=== PATIENT | female | born 1970 | race Caucasian/White ===

== ENCOUNTER 2019-04-23 15:54 | Outpatient (CLI) | payer BC, SELFPAY ==
--- NOTE | ~2019-04-23 | MM_ITS ---
EXAMINATION: MM screening deborah BI w mathew HISTORY: Screening mammogram TECHNIQUE: . Bilateral rotated lateral cc views. Craniocaudal and mediolateral oblique 3-D tomosynthe sis images were obtained and synthetic 2-D images were generated. CAD analysis was submitted and inte rpreted. COMPARISON: 03/26/2018, 11/22/2017, 11/14/2016 bilateral digital screening mammogram examinations BREAST PARENCHYMAL COMPOSITION: The breasts are heterogeneously dense, which may obscure small masses . FINDINGS: Numerous scattered bilateral benign calcifications. There is no evidence of suspicious mass , calcification, or architectural distortion to suggest malignancy in either breast. There has been n o suspicious interval change. IMPRESSION: 1. No mammographic evidence of malignancy. 2. Recommend routine screening mammography in one year. BI-RADS Category 2: Benign finding(s). Reviewed, dictated and finalized at location A. CISE SPECIALIST
== END 2019-04-23 15:55 | disposition home or self-care (01) ==
LOC: ANHIMG 15:59
PROVIDERS: PCP Family Medicine; Visit Provider Family Medicine
DX: Z12.31 Encounter for screening mammogram for malignant neoplasm of breast (principal)
CPT/HCPCS: 77063; 77067

== ENCOUNTER 2020-01-18 18:31 | Emergency (ER) | payer BC, SELFPAY ==
[2020-01-18] VITALS (20 sets, daily range): BP systolic 116–143; BP diastolic 77–86; PULSE 50–65; RESP 12–23; TEMP 36.7; O2SAT 96–100
--- NOTE | ~2020-01-18 | CT_ITS ---
EXAMINATION: CTA chest PE protocol DATE: 01/18/2020 22:25 INDICATION: Shortness of breath. TECHNIQUE: Computed tomography angiography (CTA) of the chest was performed with 100 mL Omnipaque-350 intravenous contrast timed to evaluate the pulmonary arteries. Coronal maximum intensity projection 3D-reconstructions were created by the technologist. Automated exposure control and iterative reconst ruction technique were employed. The dose-length product was 421.67 mGy-cm. COMPARISON: Chest single view 01/18/2020 FINDINGS: There is mild scarring at the lung apices. There is a 9 mm groundglass opacity in right upp er lobe. There is mild atelectasis bilaterally. The lung volumes are small. No pleural effusion. Calc ified right hilar lymph nodes are consistent with old granulomatous disease. The heart size is normal . No pericardial effusion. There is no pulmonary embolus. There is mild thoracic spondylosis. IMPRESSION: 1. No pulmonary embolus. 2. 9 mm groundglass opacity in right upper lobe, likely inflammation or infection. Consider noncontra st low-dose chest CT in 12 months. Reviewed, dictated and finalized at location B. ING AND BUFFING MACHINE OPERATOR IMPRESSION: 1. No pulmonary embolus. 2. 9 mm groundglass opacity in right upper lobe, likely inflammation or infecti on. Consider noncontrast low-dose chest CT in 12 months.
--- NOTE | ~2020-01-18 | XR_ITS ---
EXAMINATION: XR chest 1V portable INDICATION: Shortness of breath, COVID 19 TECHNIQUE: Portable AP chest at 1932 hours COMPARISON: 11/23/2015 FINDINGS: The lung volumes are low. There are patchy opacities throughout all lung zones. No pleural effusion or pneumothorax is identified. The cardiomediastinal silhouette is normal. IMPRESSION: 1. Diffuse lung disease, consistent with pneumonia. Reviewed, dictated and finalized at location A. EGNATING HELPER
--- NOTE | 2020-01-18 18:33 | ECG_ITS ---
Measurements Intervals [place] Rate: 60 P: 44 DE: 160 QRS: -3 QRSD: 105 T: 14 QT: 448 QTc: 448 Interpretive Statements SINUS RHYTHM BORDERLINE T WAVE ABNORMALITY- INFERIOR LEADS BASELINE ARTIFACT- V2-V3, V5 BORDERLINE ECG Electronically Signed On 01-19-2020 13:36:55 CIGAR MAKING MACHINE OPERATOR by Kamari Kauffman D.O.
--- NOTE | 2020-01-18 18:37 | ECG_ITS ---
Measurements Intervals [place] Rate: 56 P: -3 ME: 162 QRS: 7 QRSD: 99 T: 14 QT: 453 QTc: 440 Interpretive Statements SINUS BRADYCARDIA BORDERLINE T WAVE ABNORMALITY- INFERIOR LEADS BASELINE ARTIFACT- I, III, V2-V5 BORDERLINE ECG Electronically Signed On 01-19-2020 8:39:41 PIT CLERK by Kamari Kauffman D.O.
--- NOTE | 2020-01-18 19:05 | ED.WEAKNESS ---
HPI - Weakness General Chief complaint: Weakness Stated complaint: weakness/covid+ Time Seen by Provider: 01/18/20 19:05 Source: patient and EMS Mode of arrival: EMS Limitations: no limitations History of Present Illness HPI Narrative: Patient is a 49-year-old female with a history of hyperthyroidism, arthritis, who presents for evaluation of weakness in the setting of a Covid diagnosis. Patient became febrile with Covid symptoms on January 09, positive test 2 days later. Patient denies any shortness of breath, she reports myalgias, feeling diffusely weak, intermittently dizzy, nauseous. Patient also reporting mild, aching chest pressure over the mid sternum and bilateral lower lobes. She reports intermittent fever and chills. She lives alone, states that she was concerned given the degree of weakness. She denies rash, states she has a history of superficial thrombophlebitis and has some increased myalgias, tenderness over a superficial vein in her left calf. She otherwise denies calf pain. Patient recently finished a course of azithromycin and hydroxychloroquine. Related Data Allergies Allergy/AdvReac Type Severity Reaction Status Date / Time iodine Allergy Unknown Unknown Verified 01/18/20 18:38 Shrimp Allergy Unknown Unknown Uncoded 01/18/20 18:38 Review of Systems Review of Systems: Narrative: CONSTITUTIONAL: Reports fever and chills EYES: Denies visual changes, redness, or discharge. ENT: Denies rhinorrhea, congestion, sore throat, or otalgia. CARDIOVASCULAR: Reporting central chest pain RESPIRATORY: Reporting dry cough, denies shortness of breath GASTROINTESTINAL: Denies abdominal pain, reports nausea GENITOURINARY: Denies dysuria or hematuria. SKIN: Reports superficial thrombophlebitis of left lower extremity MUSCULOSKELETAL: Denies back pain, reports arthralgias and myalgias NEUROLOGIC: Denies headache, reports diffuse weakness PSYCHIATRIC: Denies anxiety or depression. FOR[facility]LY [facility] Past Medical History Medical History (Updated 01/18/20 @ 23:20 by Nannette Hernandez MD) Arthritis Hypothyroidism, unspecified Surgical History Surgical History (Updated 01/18/20 @ 19:32 by Nannette Hernandez MD) History of tonsillectomy Family History Family History (Updated 10/08/15 @ 23:19 by DOCTOR UNKNOWN) Sibling Family history of malignant melanoma Mother Family history of malignant neoplasm of breast in first degree relative Social History Social History Smoking status: Never smoker Alcohol intake: never Substance use: never Substance use type: does not use Exam Narrative: Exam Narrative: GENERAL: Awake, alert, conversant HEAD: Normocephalic, atraumatic. EYES: PERRLA and EOMI. ENT: Nares clear, no rhinorrhea or epistaxis. Mucous membranes moist. NECK: Supple. CHEST: No respiratory distress, breathing even and non labored HEART: Regular rate, sinus rhythm ABDOMEN:Non distended, non tender EXTREMITIES: Normal range of motion. No edema. SKIN: Warm, dry, no rash. No calf tenderness. Area of superficial thrombophlebitis of the left lower extremity, just inferior to the left knee. Mildly tender, no severe erythema. NEURO:No focal deficits. Alert and oriented x3 Course Vital Signs Vital signs: Vital Signs Temperature 36.7 C 01/18/20 18:26 Pulse Rate 61 01/18/20 18:26 Respiratory Rate 18 01/18/20 18:26 Blood Pressure 143/83 H 01/18/20 18:26 Pulse Oximetry 100 01/18/20 18:26 Temperature 36.7 C 01/18/20 18:26 Pulse Rate 56 L 01/18/20 23:03 Respiratory Rate 14 01/18/20 23:03 Blood Pressure 116/80 01/18/20 21:31 Pulse Oximetry 100 01/18/20 23:03 MDM - Weakness MDM Narrative Medical decision making narrative: Patient presented for evaluation weakness in the setting of Covid diagnosis. At the time of assessment, ABCs are intact and vital signs are stable. No hypoxemia or respiratory distress. Neurological exam is
[2020-01-18] MEDS: oxyCODONE HCL (*CRX) 5 MG TAB IR PO (19:35)
[2020-01-18] MEDS: ONDANSETRON INJ 4 MG/2 ML VIAL IV PUSH (19:36)
[2020-01-18 19:51] LABS: Basophils Percent Auto 0.3 % (0.2-1.2); Eosinophils Absolute Auto 0.2 K/mm3 (0-0.3); Eosinophils Percent Auto 2.5 % (0-4.4); Hemoglobin 12.6 g/dL (12.0-15.0); Immature Granulocyte Absolute 0.02 K/mm3 (0.00-0.031); Immature Granulocyte Percent A 0.3 % (0-0.5); Lymphocytes Absolute Auto 1.59 K/mm3 (0.9-3.2); Lymphocytes Percent Auto 26.3 % (18.3-44.2); Mean Corpuscular Hemoglobin 30.7 pg (26-34); Mean Corpuscular Volume 87.6 fl (80-100); Mean Platelet Volume 10.9 fl (7.4-10.4); Monocytes Absolute Auto 0.6 K/mm3 (0.1-0.6); Monocytes Percent Auto 9.3 % (2.6-8.5); Neutrophils Absolute Auto 3.7 K/mm3 (1.3-6.7); Neutrophils Percent Auto 61.3 % (45.5-73.1); Platelet Count Result 158 k/mm3 (150-375); Red Blood Count 4.11 M/mm3 (4.2-5.4); Red Cell Distribution Width 12.6 % (11.5-14.5); White Blood Count 6.1 K/mm3 (4.5-10.0)
[2020-01-18 20:02] LABS: Creatine Kinase 48 U/L (30-135)
[2020-01-18 20:03] LABS: Add Urine Microscopic? NO; Appearance Urine Clear (Clear); Bilirubin Urine Negative (Negative); Blood Urine Negative (Negative); Color Urine Straw (Yellow); Glucose Urine UA Negative (Negative); Ketones Urine Negative (Negative); Leukocyte Esterase Ur Negative LEU/UL (Negative); Nitrate Urine Negative (Negative); Protein Urine Negative (Negative); Urobilinogen Urine Negative mg/dL (<2.0)
[2020-01-18 20:04] LABS: Alanine Aminotransferase 28 U/L (4-35); Albumin Level 3.9 g/dL (3.5-5.1); Alkaline Phosphatase 63 U/L (38-126); Anion Gap 8 mmol/L (8-16); Aspartate Amino Transferase 33 U/L (14-36); Bilirubin,Total 0.4 mg/dL (0.2-1.3); Blood Urea Nitrogen 14 mg/dL (7-17); Calcium 8.6 mg/dL (8.4-10.2); Carbon Dioxide 27 mmol/L (22-30); Chloride 105 mmol/L (98-107); Estimated CRCL calculation 99 ml/min; Estimated Glomerular Filt Rate > 60; Glucose 105 mg/dL (65-105); Potassium 3.8 mmol/L (3.4-5.0); Sodium 140 mmol/L (137-145)
[2020-01-18 20:15] LABS: Troponin I < 0.012 ng/mL (0.000-0.034)
[2020-01-18 20:33] LABS: INR 0.9; Prothrombin Time 12.6 Seconds (11.1-14.7)
[2020-01-18 20:36] LABS: D Dimer 0.53 ug/mL (<0.48)
[2020-01-19 00:04] VITALS: BP 137/77; PULSE 61; RESP 18; O2SAT 100
== END 2020-01-19 00:06 | disposition home or self-care (01) ==
PROVIDERS: Emergency Provider Emergency Medicine; PCP Family Medicine
DX: U07.1 COVID-19 (principal); R53.1 Weakness; M19.90 Unspecified osteoarthritis, unspecified site; E05.90 Thyrotoxicosis, unspecified without thyrotoxic crisis or storm; R00.1 Bradycardia, unspecified; R94.31 Abnormal electrocardiogram [ECG] [EKG]
CPT/HCPCS: 36415; 71045; 71275; 80053; 81003; 82550; 84484; 85025; 85380; 85610; 85730; 93005; 96374; 99284; A9270; J2405; Q9967

== ENCOUNTER → 2020-05-14 14:17 | Outpatient (CLI) | payer BC, SELFPAY ==
--- NOTE | ~2020-05-14 | MMUS_ITS ---
EXAMINATION: MM diagnostic deborah BI w mathew, US breast LT limited HISTORY: Palpable left breast abnormality TECHNIQUE: Additional 3-D tomosynthesis images of the breasts were performed and synthetic 2-D images were generated. CAD analysis was submitted and interpreted. High resolution Limited left breast ultr asound was performed. COMPARISON: Comparison to multiple prior studies sequentially, with oldest reviewed study dated 09/24. BREAST PARENCHYMAL COMPOSITION: The breasts are heterogenously dense, which may obscure small masses. FINDINGS: MAMMOGRAPHIC FINDINGS: There are no suspicious masses, calcifications or architectural distortion to suggest malignancy. The re are benign bilateral breast calcifications. ULTRASOUND: Limited left breast ultrasound: Normal heterogeneous echotexture in the area of palpable concern. IMPRESSION: 1. No evidence for malignancy in either breast. 2. Routine yearly screening mammogram and regular clinical breast examination are recommended. BI-RADS Category 2: Benign finding(s). Reviewed, dictated and finalized at location A. RVISOR PIPE JOINTS IMPRESSION: 1. No evidence for malignancy in either breast. 2. Routine yearly screening mammogram and regular clinical breast examination a re recommended. BI-RADS Category 2: Benign finding(s).
== END ==
PROVIDERS: PCP Family Medicine; Visit Provider Obstetrics & Gynecology
DX: N63.20 Unspecified lump in the left breast, unspecified quadrant (principal)
CPT/HCPCS: 76642; 77062; 77066; G0279

== ENCOUNTER 2021-03-30 13:48 | Outpatient (CLI) | payer OTHER, SELFPAY ==
--- NOTE | ~2021-03-30 | US_ITS ---
EXAMINATION: US abdomen limited DATE: 03/30/2021 14:22 INDICATION: Left upper quadrant abdominal pain TECHNIQUE: Multiple grayscale and Doppler ultrasound images of the abdomen were obtained. COMPARISON: None FINDINGS: Normal spleen measuring 10.3 cm in maximal length. Left kidney measures 10.0 x 5.8 x 5.4 cm with norm al echogenicity and contour. No hydronephrosis. IMPRESSION: 1. Normal left upper quadrant ultrasound. Reviewed, dictated and finalized at location A. MILITARY
== END 2021-03-30 13:49 | disposition home or self-care (01) ==
PROVIDERS: PCP Family Medicine; Visit Provider Nurse Practitioner Family
DX: R10.12 Left upper quadrant pain (principal)
CPT/HCPCS: 76705

== ENCOUNTER → 2022-05-31 15:25 | Outpatient (CLI) | payer OTHER, SELFPAY ==
--- NOTE | ~2022-05-31 | MM_ITS ---
EXAMINATION: MM screening deborah BI w mathew HISTORY: Screening TECHNIQUE: Craniocaudal and mediolateral oblique 3-D tomosynthesis images were obtained and synthetic 2-D images were generated. CAD analysis was submitted and interpreted. COMPARISON: No prior mammogram is available for comparison at this institution. BREAST PARENCHYMAL COMPOSITION: The breasts are heterogeneously dense, which may obscure small masses . FINDINGS: There are bilateral subareolar masses which are obscured by fibroglandular tissue. There ar e scattered benign-appearing breast calcifications. IMPRESSION: 1. Bilateral subareolar masses. 2. Additional mammographic views and possible breast ultrasound are recommended. BI-RADS Category 0: Incomplete: Needs additional imaging evaluation. Reviewed, dictated and finalized at location A. IMPRESSION: 1. Bilateral subareolar masses. 2. Additional mammographic views and possible breast ultrasound are recommended . BI-RADS Category 0: Incomplete: Needs additional imaging evaluation.
== END ==
PROVIDERS: PCP Family Medicine; Visit Provider Obstetrics & Gynecology
DX: Z12.31 Encounter for screening mammogram for malignant neoplasm of breast (principal); R92.8 Other abnormal and inconclusive findings on diagnostic imaging of breast
CPT/HCPCS: 77063; 77067

== ENCOUNTER → 2022-06-22 08:40 | Outpatient (CLI) | payer OTHER, SELFPAY ==
--- NOTE | ~2022-06-22 | MMUS_ITS ---
EXAMINATION: MM diagnostic deborah BI w mathew, US breast BI complete HISTORY: Bilateral subareolar masses reported on 05/31/2022 screening mammogram TECHNIQUE: Additional 3-D tomosynthesis images of both breasts were performed and synthetic 2-D image s were generated. CAD analysis was submitted and interpreted. High resolution bilateral complete chrystal st ultrasound examination including all 4 quadrants and subareolar areas was performed. COMPARISON: 05/31/2022 bilateral screening mammogram BREAST PARENCHYMAL COMPOSITION: The breasts are heterogeneously dense, which may obscure small masses . FINDINGS: MAMMOGRAPHIC FINDINGS: There are multiple scattered benign-appearing microcalcifications in both breasts. Heterogeneously dense stroma may obscure masses. In particular, there is some asymmetry in the isaac lateral right breast on craniocaudal view. ULTRASOUND: Right breast: 12:00 subareolar: 2.5 x 1.4 x 2.9 cm simple cyst. This accounts for the mammographic asymmetry noted in the subareolar right breast. 12:00 4 cm from nipple: Parallel circumscribed hypoechoic 7 x 12 x 9 mm lesion without internal vascu larity or suspicious shadowing 12:00 4 cm from nipple: 3.5 x 3.2 mm sonolucency with through transmission posterior enhancement, lik thea a small cyst 12:00 2 cm from nipple: Parallel circumscribed 3.4 x 7 x 5.6 mm hypoechoic lesion without internal va scularity or posterior shadowing, benign in appearance 9:00 6 cm from nipple: 5 x 5.5 mm sonolucent lesion without internal vascularity, with posterior enha ncement, likely a small cyst 9:00 3 cm from nipple: Parallel circumscribed 4 x 8 x 7.5 mm sonolucency with through transmission, c onsistent with simple cyst 11:00 4 cm from nipple: 6 x 9.5 x 10.5 mm parallel circumscribed sonolucency with through transmissio n and posterior enhancement, consistent with simple cyst is Subareolar area: 7 x 10 mm cyst Left breast: 12:00 subareolar area: 6 x 8 x 7 mm cyst 12:00 2 cm from nipple: Parallel circumscribed hypoechoic 3.6 x 9 x 8 mm lesion with through transmis pillo, no internal vascularity, benign in appearance Subareolar area: 10 x 12.8 mm sonolucency with through transmission posterior enhancement consistent with cyst IMPRESSION: 1. Bilateral benign findings; no mammographic evidence of malignancy 2. Routine annual mammographic screening is recommended BI-RADS Category 2: Benign finding(s). Reviewed, dictated and finalized at location A. IMPRESSION: 1. Bilateral benign findings; no mammographic evidence of malignancy 2. Routine annual mammographic screening is recommended BI-RADS Category 2: Benign finding(s).
== END ==
PROVIDERS: PCP Family Medicine; Visit Provider Obstetrics & Gynecology
DX: N63.20 Unspecified lump in the left breast, unspecified quadrant (principal); N63.10 Unspecified lump in the right breast, unspecified quadrant; N60.02 Solitary cyst of left breast; N60.01 Solitary cyst of right breast
CPT/HCPCS: 76641; 77062; 77066; G0279

== ENCOUNTER 2023-06-07 14:51 | Outpatient (CLI) | payer OTHER, SELFPAY ==
--- NOTE | ~2023-06-07 | MM_ITS ---
EXAMINATION: MM screening deborah BI w mathew HISTORY: Screening mammogram TECHNIQUE: Craniocaudal and mediolateral oblique 3-D tomosynthesis images were obtained and synthetic 2-D images were generated. CAD analysis was submitted and interpreted. COMPARISON: June 22, 2022 bilateral diagnostic mammography and complete bilateral breast ultrasound examination May 31, 2022 bilateral screening mammogram examinations BREAST PARENCHYMAL COMPOSITION: The breasts are heterogeneously dense, which may obscure small masses . FINDINGS: There are scattered bilateral benign calcifications. There is no evidence of suspicious mas s, calcification, or architectural distortion to suggest malignancy in either breast. There has been no suspicious interval change. IMPRESSION: 1. No mammographic evidence of malignancy. 2. Recommend routine screening mammography in one year. BI-RADS Category 2: Benign finding(s). Reviewed, dictated and finalized at location A.
== END 2023-06-07 14:52 ==
LOC: MICIMG 14:53
PROVIDERS: PCP Family Medicine; Visit Provider Obstetrics & Gynecology
DX: Z12.31 Encounter for screening mammogram for malignant neoplasm of breast (principal)
CPT/HCPCS: 77063; 77067

== ENCOUNTER 2024-06-09 14:53 | Outpatient (CLI) | payer OTHER, BC, SELFPAY ==
--- NOTE | ~2024-06-09 | MM_ITS ---
EXAMINATION: MM screening deborah BI w mathew HISTORY: Screening mammogram, family history of breast cancer in her mother. TECHNIQUE: Craniocaudal and mediolateral oblique 3-D tomosynthesis images were obtained and synthetic 2-D images were generated. CAD analysis was submitted and interpreted. COMPARISON: 06/07/2023, 05/31/2022 BREAST PARENCHYMAL COMPOSITION:Dense: The breasts are heterogeneously dense, which may obscure small masses. FINDINGS: No suspicious mass, calcification, or architectural distortion are identified in either ranjeet ast to suggest malignancy. There has been no suspicious interval change. IMPRESSION: No mammographic evidence of malignancy. Recommend routine screening mammography in one year. BI-RADS Category 1: Negative Reviewed, dictated and finalized at location .
== END 2024-06-09 14:54 | disposition home or self-care (01) ==
LOC: MICIMG 14:57
PROVIDERS: PCP Family Medicine; Visit Provider Obstetrics & Gynecology
DX: Z12.31 Encounter for screening mammogram for malignant neoplasm of breast (principal)
CPT/HCPCS: 77063; 77067